=== PATIENT | male | born 1985 | race Caucasian/White ===

== ENCOUNTER 2016-08-24 17:47 | Emergency (ER) | payer SELFPAY ==
[2016-08-24 18:05] VITALS: BP 156/111; PULSE 87; TEMP 98.7; BMI 36.2
[2016-08-24] MEDS ORDERED: KETOROLAC TROMETHAMINE 60 MG/2 ML VIAL IM ONE (18:11)
--- NOTE | 2016-08-24 18:15 | PDOC ---
History of Present Illness - General History Source: Patient Exam Limitations: No Limitations <Mario Melo - Last Filed: 08/24/16 18:15> - General History Source: Patient Exam Limitations: No Limitations - History of Present Illness Initial Comments: 08/24/16 18:47 The patient is a 30 year old male with no known PMHx who presents to the ED with left sided back pain for 6 days. Patient states that he had back spasms on which persisted until Tuesday, when his back began to feel better. On tuesday, 4 days ago, he lifted a garage door and experienced severe pain down his back. Since then, the pain has persisted and has interfered with his daily activities. He denies any other complaints. <Ana Laura Alexandre - Last Filed: 08/24/16 18:47> - General Chief Complaint: Back Pain Stated Complaint: LEFT LOWER BACK PAIN Time Seen by Provider: 08/24/16 17:56 Past History - Past Medical History HTN: Yes (NON COMPLIANT WITH MEDS) - Psycho/Social/Smoking Cessation Hx Anxiety: No Suicidal Ideation: No Smoking History: Former smoker Have you smoked in the past 12 months: Yes Number of Cigarettes Smoked Daily: 5 If you are a former smoker, when did you quit?: MAY 2016 Information on smoking cessation initiated: Yes 'Breaking Loose' booklet given: 08/24/16 Hx Alcohol Use: No Drug/Substance Use Hx: No Substance Use Type: None <Mario Melo - Last Filed: 08/24/16 18:15> <Ana Laura Alexandre - Last Filed: 08/24/16 18:47> - Past Medical History Allergies/Adverse Reactions: Allergies Allergy/AdvReac Type Severity Reaction Status Date / Time No Known Allergies Allergy Verified 08/24/16 17:49 Home Medications: Ambulatory Orders Cyclobenzaprine HCl [Flexeril 10 mg] 10 mg PO TID PRN #21 tablet 08/24/16 Naproxen [Naprosyn -] 500 mg PO BID PRN #20 tablet 08/24/16 Review of Systems - Review of Systems Able to Perform ROS?: Yes Comments:: 08/24/16 18:47 GENERAL/CONSTITUTIONAL: No fever or chills. No weakness. HEAD, EYES, EARS, NOSE AND THROAT: No change in vision. No ear pain or discharge. No sore throat. CARDIOVASCULAR: No chest pain or shortness of breath. RESPIRATORY: No cough, wheezing, or hemoptysis. GASTROINTESTINAL: No nausea, vomiting, diarrhea or constipation. GENITOURINARY: No dysuria, frequency, or change in urination. MUSCULOSKELETAL: + back pain. No joint pain. No neck pain. SKIN: No rash NEUROLOGIC: No headache, vertigo, loss of consciousness, or change in strength/ sensation. ENDOCRINE: No increased thirst. No abnormal weight change. HEMATOLOGIC/LYMPHATIC: No anemia, easy bleeding, or history of blood clots. ALLERGIC/IMMUNOLOGIC: No hives or skin allergy. <Ana Laura Alexandre - Last Filed: 08/24/16 18:47> *Physical Exam - Vital Signs Last Vital Signs Temp Pulse Resp BP Pulse Ox 98.7 F 87 20 156/111 97 08/24/16 17:48 08/24/16 17:48 08/24/16 17:48 08/24/16 17:48 08/24/16 17:48 <Mario Melo - Last Filed: 08/24/16 18:15> - Vital Signs Last Vital Signs Temp Pulse Resp BP Pulse Ox 98.7 F 87 20 156/111 97 08/24/16 17:48 08/24/16 17:48 08/24/16 17:48 08/24/16 17:48 08/24/16 17:48 - Physical Exam Comments: 08/24/16 18:47 GENERAL: Awake, alert, and fully oriented, in no acute distress HEAD: No signs of trauma EYES: PERRLA, EOMI, sclera anicteric, conjunctiva clear ENT: Auricles normal inspection, hearing grossly normal, nares patent, oropharynx clear without exudates. Moist mucosa NECK: Normal ROM, supple, no lymphadenopathy, JVD, or masses LUNGS: Breath sounds equal, clear to auscultation bilaterally. No wheezes, and no crackles HEART: Regular rate and rhythm, normal S1 and S2, no murmurs, rubs or gallops ABDOMEN: Soft, nontender, normoactive bowel sounds. No guarding, no rebound. No masses EXTREMITIES: Tenderness to palpation of left mid thoracic back worse with flexion and extension of his back. No spinal tenderness. Normal range of motion , no edema. No clubbing or cyanosis. No cords, erythema NEUROLOGICAL: Cranial nerves II through XII grossly intact. Normal speech, normal gait SKIN: Warm, Dry, normal turgor, no rashes or lesions noted. <Ana Laura Alexandre - Last Filed: 08/24/16 18:47> ED Treatment Course - Medications Given in the ED: ED Medications Discontinued Medications Generic Name Dose Route Start Last Admin Trade Name Bruno PRN Reason Stop Dose Admin Ketorolac Tromethamine 60 mg 08/24/16 18:11 08/24/16 18:21 Toradol Injection - IM 08/24/16 18:12 60 mg ONCE ONE Administration <Ana Laura Alexandre - Last Filed: 08/24/16 18:47> Medical Decision Making - Medical Decision Making 08/24/16 18:11 A portion of this note was documented by scribe services under my direction. I have reviewed the details of the note, within reason, and agree with the documentation with the following case summary and management plan written by me. Patient treated in the ED. Nursing notes are reviewed and incorporated into the medical decision-making. Vital signs reviewed. Peripheral IV access obtained by the nurse, laboratory studies are drawn and sent, reviewed and interpreted by myself. Vital Signs Temp Pulse Resp BP Pulse Ox 98.7 F 87 20 156/111 97 08/24/16 17:48 08/24/16 17:48 08/24/16 17:48 08/24/16 17:48 08/24/16 17:48 30-year-old male with no medical history presents with left mid back spasm and strain. Several days ago, the patient had pulled his left upper back. He had taken no medications reported that his back was improving on its own. However, patient attempting to lift a heavy gait and started to feel the same back spasm and strain. Denies any urinary or bowel incontinence. And eyes other symptoms. Has not taken any medications. Patient's symptoms are consistent with back strain and spasm. We shot Toradol. NSAIDs and muscle relaxants. Heat packs and supportive care and follow-up with orthopedics if symptoms persist. I discussed the physical exam findings, ancillary test results and final diagnoses with the patient. I answered all of the patient's questions. The patient was satisfied with the care received and felt comfortable with the discharge plan and treatment plan. The patient will call their primary care physician within 24 hours to arrange follow-up and will return to the Emergency Department with any new, persistant or worsening symptoms. <Mario Melo - Last Filed: 08/24/16 18:15> *DC/Admit/Observation/Transfer - Discharge Dispostion Admit: No <Mario Melo - Last Filed: 08/24/16 18:15> - Attestations Scribe Attestion: 08/24/16 18:47 Documentation prepared by Ana Laura Alexandre, acting as medical office manager for Mario Melo MD. <Ana Laura Alexandre - Last Filed: 08/24/16 18:47> Diagnosis at time of Disposition: Back strain Qualifiers: Encounter type: initial encounter Qualified Code(s): S39.012A - Strain of muscle, fascia and tendon of lower back, initial encounter - Discharge Dispostion Disposition: HOME Condition at time of disposition: Stable - Prescriptions Prescriptions: Cyclobenzaprine HCl [Flexeril 10 mg] 10 mg PO TID PRN #21 tablet PRN Reason: Back Pain Naproxen [Naprosyn -] 500 mg PO BID PRN #20 tablet PRN Reason: Back Pain - Referrals Referrals: Richard Asencio MD [Staff Physician] - - Patient Instructions Printed Discharge Instructions: DI for Back Spasm Additional Instructions: Take 500 mg naproxen every 12 hours as needed for pain. For additional relief, you may take a tablet of flexeril every 8 hours for muscle relaxants. This medication may make you drowsy, so please do not drink or drive. If symptoms persist for more than 2 weeks, make an appointment with your doctor or orthopedics.
[2016-08-24] MEDS ORDERED: KETOROLAC TROMETHAMINE 60 MG/2 ML VIAL ONE (18:24)
== END 2016-08-24 18:33 | disposition home or self-care (01) ==
LOC: FER 17:47
PROC: 3E0233Z Introduction of Anti-inflammatory into Muscle, Percutaneous Approach (ICD-10-PCS; principal; 2016-08-24)
DX: S39.012A Strain of muscle, fascia and tendon of lower back, initial encounter (principal); X58.XXXA Exposure to other specified factors, initial encounter; Y93.89 Activity, other specified; Y92.9 Unspecified place or not applicable; I10 Essential (primary) hypertension; Z87.891 Personal history of nicotine dependence
CPT/HCPCS: 99282-25

== ENCOUNTER 2016-08-27 18:20 | Emergency (ER) | payer SELFPAY ==
[2016-08-27 18:26] VITALS: BP 142/96; PULSE 100; TEMP 98; BMI 36.2
--- NOTE | 2016-08-27 19:26 | PDOC ---
History of Present Illness - General Chief Complaint: Blood Pressure Problem Stated Complaint: BLEEDING FROM MOUTH S/P CLEANING TEETH History Source: Patient Exam Limitations: No Limitations - History of Present Illness Initial Comments: 08/27/16 19:21 30 y m no sig pmhx, seen at [facility] 3 days ago for back pain and rx flexeril; pte c/o bleeding through gums and rt nostril after dental cleansing today. sts no trauma. no hx of bleeding disorders. no asa or nsaid's. no hematuria or hematochezia.in ed in [place]. slightly htn but lower than in his last visit. will address that at d/c. Past History - Past Medical History Allergies/Adverse Reactions: Allergies Allergy/AdvReac Type Severity Reaction Status Date / Time No Known Allergies Allergy Verified 08/27/16 18:23 Home Medications: Ambulatory Orders Cyclobenzaprine HCl [Flexeril 10 mg] 10 mg PO TID PRN #21 tablet 08/24/16 Naproxen [Naprosyn -] 500 mg PO BID PRN #20 tablet 08/24/16 HTN: Yes (NON COMPLIANT WITH MEDS) - Psycho/Social/Smoking Cessation Hx Anxiety: No Suicidal Ideation: No Smoking History: Former smoker Have you smoked in the past 12 months: Yes Number of Cigarettes Smoked Daily: 5 If you are a former smoker, when did you quit?: MAY 2016 Information on smoking cessation initiated: Yes 'Breaking Loose' booklet given: 08/27/16 Hx Alcohol Use: Yes Drug/Substance Use Hx: Yes ([facility]) Substance Use Type: None Review of Systems - Review of Systems Able to Perform ROS?: Yes Is the patient limited [place] proficient: No Constitutional: No: Symptoms Reported HEENTM: Yes: Symptoms Reported, See HPI Respiratory: No: Symptoms reported Cardiac (ROS): No: Symptoms Reported ABD/GI: No: Symptoms Reported : No: Symptoms Reported Musculoskeletal: Yes: Symptoms Reported, See HPI Integumentary: No: Symptoms Reported, Rash Neurological: No: Symptoms reported All Other Systems: Reviewed and Negative *Physical Exam - Vital Signs Last Vital Signs Temp Pulse Resp BP Pulse Ox 98 F 100 H 18 142/96 100 08/27/16 18:23 08/27/16 18:23 08/27/16 18:23 08/27/16 18:23 08/27/16 18:23 - Physical Exam General Appearance: Yes: Nourished, Appropriately Dressed. No: Apparent Distress HEENT: positive: Normal ENT Inspection (but bloody oral cavity. after rinsing, light oozing from gums at post and superior last molars. ), Other (rt nostril blod clot.). negative: Nasal Congestion Neck: positive: Supple. negative: Tender Respiratory/Chest: negative: Chest Tender, Respiratory Distress Cardiovascular: positive: Regular Rhythm, Regular Rate Gastrointestinal/Abdominal: positive: Soft. negative: Tender Lymphatic: negative: Adenopathy Musculoskeletal: positive: Normal Inspection. negative: CVA Tenderness, Vertebral Tenderness Extremity: positive: Normal Capillary Refill, Normal Inspection, Normal Range of Motion Integumentary: positive: Normal Color. negative: Petechiae, Rash, Ecchymosis, Bruising Neurologic: positive: director prospect II-XII NML intact, Fully Oriented, Alert, Normal Mood/ Affect, Normal Response, Motor Strength / ED Treatment Course - LABORATORY CBC & Chemistry Diagram: 08/27/16 19:20 Medical Decision Making - Medical Decision Making 08/27/16 19:25 persisting slow bleed after dental cleansing + epistaxis . will check cbc and inr 08/27/16 20:01 coags and plts ok. oozing persists from gums but has cleared in nose will d/c home HTN discussed with pt. will see his pmd *DC/Admit/Observation/Transfer Diagnosis at time of Disposition: Epistaxis, Gums, bleeding - Discharge Dispostion Disposition: HOME Condition at time of disposition: Improved - Patient Instructions Printed Discharge Instructions: DI for High Blood Pressure Additional Instructions: DO NOT PICK OR BLOW YOUR NOSE KEEP HEAD ELEVATED AT LEAST 30 DEGREES TONIGHT SEE YOUR DENTIST TOMORROW RETURN IF BLEEDING INCREASES DO NOT RINSE YOUR MOUTH
[2016-08-27 19:44] LABS: INR 1.18 (0.82-1.09); PROTHROMBIN TIME (PATIENT) 13.2 SEC (10.2-13.0)
[2016-08-27 19:49] LABS: MCH 28.2 pg (25.7-33.7); MCHC 34.6 g/dl (32.0-35.9); MEAN CELL VOLUME 81.6 fl (80-96); MEAN PLT VOLUME 10.1 fl (7.5-11.1); PLATELET COUNT 184 K/MM3 (134-434); RDW 12.9 % (11.9-15.9); WHITE BLOOD COUNT 8.3 K/mm3 (4.0-10.0)
== END 2016-08-27 20:09 | disposition home or self-care (01) ==
LOC: FER 18:20
DX: R04.0 Epistaxis (principal); K06.8 Other specified disorders of gingiva and edentulous alveolar ridge; Z87.891 Personal history of nicotine dependence; I10 Essential (primary) hypertension
CPT/HCPCS: 36415; 85027; 85610; 99281-25

== ENCOUNTER → 2016-10-12 | Emergency (ER) | payer OTHER ==
[2016-10-12 04:20] VITALS: BMI 33.0
--- NOTE | 2016-10-12 04:37 | PDOC ---
History of Present Illness - General History Source: Patient Exam Limitations: No Limitations - History of Present Illness Initial Comments: 10/12/16 04:46 The patient is a 31 year old male with significant past medical history of hypertension and anemia who presents to the ED for pressure like headache 1 hour prior to arrival. Patient reports he had lightheadedness around 12pm yesterday and one hour prior to arrival he developed a pressure-like headache with dizziness and palpitations. Denies blurry vision, SOB, chest pain, nausea, or vomiting. Patient became concerned about his blood pressure and decided to come in. States his blood pressure medications were recently increased about 1.5 weeks ago. The patient denies fever, chills, cough, diaphoresis, abdominal pain, and diarrhea. Allergies: NKDA Social History: Former smoker. No alcohol or drug use reported. Past Surgical History: None reported PCP: Dr. Armida Shaw <Janae Cloey - Last Filed: 10/12/16 04:46> - General History Source: Patient <Marco Antonio Adrian - Last Filed: 10/12/16 06:00> - General Chief Complaint: Blood Pressure Problem Stated Complaint: BP PROBLEM Time Seen by Provider: 10/12/16 04:26 Past History <Janae Coley - Last Filed: 10/12/16 04:46> - Past Medical History HTN: Yes (NON COMPLIANT WITH MEDS) - Psycho/Social/Smoking Cessation Hx Anxiety: No Suicidal Ideation: No Smoking History: Never smoked Have you smoked in the past 12 months: Yes Number of Cigarettes Smoked Daily: 5 If you are a former smoker, when did you quit?: MAY 2016 Information on smoking cessation initiated: No 'Breaking Loose' booklet given: 08/27/16 Hx Alcohol Use: No Drug/Substance Use Hx: No Substance Use Type: None <Marco Antonio Adrian - Last Filed: 10/12/16 06:00> - Past Medical History Allergies/Adverse Reactions: Allergies Allergy/AdvReac Type Severity Reaction Status Date / Time No Known Allergies Allergy Verified 10/12/16 04:17 Home Medications: Ambulatory Orders Amlodipine Bes/Olmesartan Med [Amlodipine-Olmesartan 5-20 mg] 1 each PO DAILY Ferrous Sulfate [Feosol] 325 mg PO DAILY 05/16/17 Review of Systems - Review of Systems Able to Perform ROS?: Yes Comments:: 10/12/16 04:46 CONSTITUTIONAL: Absent: fever, no chills, no fatigue EYES: Absent: visual changes ENT: Absent: ear pain, no sore throat CARDIOVASCULAR: +palpitations, lightheadedness Absent: chest pain RESPIRATORY: Absent: cough, no SOB GI: Absent: abdominal pain, no nausea, no vomiting, no constipation, no diarrhea GENITOURINARY: Absent: dysuria, no frequency, no hematuria MUSCULOSKELETAL: Absent: back pain, no arthralgia, no myalgia SKIN: Absent: rash NEURO: +pressure-like headache, dizziness <Janae Coley - Last Filed: 10/12/16 04:46> *Physical Exam - Vital Signs Last Vital Signs Temp Pulse Resp BP Pulse Ox 97.2 F L 75 14 134/94 98 10/12/16 04:18 10/12/16 04:18 10/12/16 04:18 10/12/16 04:18 10/12/16 04:18 - Physical Exam Comments: 10/12/16 04:46 GENERAL: Well-appearing, well-nourished. No apparent distress. HEENT: Normocephalic, atraumatic. PERRL, EOM intact. CARDIOVASCULAR: Normal S1, S2. Regular rate and rhythm. PULMONARY: Clear to auscultation bilaterally. ABDOMEN: Soft, non-distended, non-tender. EXTREMITIES: Normal ROM in all four extremities. No gross deformities. SKIN: Warm, dry. No rash NEUROLOGICAL: No focal neurological deficits. <Janae Coley - Last Filed: 10/12/16 04:46> - Vital Signs Last Vital Signs Temp Pulse Resp BP Pulse Ox 97.2 F L 75 14 134/94 98 10/12/16 04:18 10/12/16 04:18 10/12/16 04:18 10/12/16 04:18 10/12/16 04:18 <Marco Antonio Adrian - Last Filed: 10/12/16 06:00> Medical Decision Making - Medical Decision Making 10/12/16 06:00 Dr. Adrian: The scribe's documentation has been prepared under my direction and personally reviewed by me in its entirery. I confirm that the note above accurately reflects all work, treatment, procedures, and medical decision making performed by me. <Marco Antonio Adrian - Last Filed: 10/12/16 06:00> *DC/Admit/Observation/Transfer - Attestations Scribe Attestion: 10/12/16 04:46 Documentation prepared by Janae Coley, acting as medical laboratory technical officer for Marco Antonio Adrian MD/DO. <Janae Coley - Last Filed: 10/12/16 04:46> - Discharge Dispostion Admit: No <Marco Antonio Adrian - Last Filed: 10/12/16 06:00> Diagnosis at time of Disposition: Hypertension Qualifiers: Hypertension type: essential hypertension Qualified Code(s): I10 - Essential ( primary) hypertension - Discharge Dispostion Disposition: HOME Condition at time of disposition: Stable - Referrals Referrals: Armida Shaw MD [Primary Care Provider] - - Patient Instructions Printed Discharge Instructions: DI for High Blood Pressure, How to Monitor Your Blood Pressure at Home - Post Discharge Activity Work/School Note: Back to Work
[2016-10-12 06:16] VITALS: BP 146/91; PULSE 71; TEMP 97.6
== END | disposition home or self-care (01) ==
LOC: JER 03:56
DX: I10 Essential (primary) hypertension (principal); D64.9 Anemia, unspecified; Z91.14 Patient's other noncompliance with medication regimen
CPT/HCPCS: 70450-TC; 99282-25

== ENCOUNTER 2017-02-09 13:03 | Day surgery (SDC) | payer OTHER ==
[2017-02-02 13:53] VITALS: BMI 30.2
[2017-02-09] MEDS ORDERED: MIDAZOLAM HCL 2 MG/2 ML SINGLE DOSE VIAL ONE ×3 (13:38)
[2017-02-09] MEDS ORDERED: ROPIVACAINE HCL 0.5% 30ML VIAL ONE (13:45)
[2017-02-09] MEDS ORDERED: PROPOFOL 20 ML ONE (14:50)
[2017-02-09] MEDS ORDERED: LIDOCAINE HCL/PF 2% SDV 5ML VIAL ONE (14:50)
[2017-02-09] MEDS ORDERED: ROCURONIUM BROMIDE 50 MG/5 ML VIAL ONE (14:52)
[2017-02-09] MEDS ORDERED: DEXAMETHASONE SOD PHOSPHATE 4 MG/1 ML VIAL ONE (15:25)
[2017-02-09] MEDS ORDERED: ceFAZolin SODIUM 1 GM VIAL ONE (15:25)
[2017-02-09] MEDS ORDERED: ONDANSETRON 4 MG/2 ML VIAL ONE ×2 (15:25→16:56)
[2017-02-09] MEDS ORDERED: NEOSTIGMINE METHYLSULFATE 0.5 MG/ML - 10 ML MDV ONE (16:03)
[2017-02-09] MEDS ORDERED: GLYCOPYRROLATE 0.2 MG/1 ML VIAL ONE (16:04)
[2017-02-09] MEDS ORDERED: oxyCODONE HCL 5 MG TABLET PO PRN ×2 (16:16)
[2017-02-09] MEDS ORDERED: ONDANSETRON 4 MG/2 ML VIAL IVPUSH PRN (16:16)
[2017-02-09] MEDS ORDERED: PROMETHAZINE HCL 25 MG/1 ML VIAL IVPUSH PRN (16:16)
[2017-02-09] MEDS ORDERED: LACTATED RINGERS SOLUTION 1,000 ML IV SCH (16:30)
[2017-02-09] MEDS ORDERED: ONDANSETRON 4 MG/2 ML VIAL IVPUSH ONE (16:56)
[2017-02-09 17:21] VITALS: TEMP 98.5
[2017-02-09] MEDS ORDERED: PROMETHAZINE HCL 25 MG/1 ML VIAL ONE (17:32)
[2017-02-09 18:50] VITALS: PULSE 76
[2017-02-09 19:30] VITALS: BP 149/92
--- NOTE | 2017-02-11 09:00 | OP ---
DATE OF OPERATION: 02/09/2017 PREOPERATIVE DIAGNOSIS: Left shoulder possible rotator cuff tear. POSTOPERATIVE DIAGNOSES: 1. Left shoulder partial-thickness rotator cuff tear. 2. Left shoulder subacromial impingement syndrome. OPERATIVE PROCEDURES: 1. Left shoulder glenohumeral joint and rotator cuff extensive debridement. 2. Left shoulder arthroscopic subacromial decompression. SURGEON: Jay Moreno MD PHLEBOTOMIST: AARON Bennett ANESTHESIA: Regional and general. COMPLICATIONS: None. ESTIMATED BLOOD LOSS: Minimal. INDICATION FOR PROCEDURE: The patient is a 31-year-old male with the above finding, indicated for operative treatment. Risks, benefits, and alternatives were discussed with the patient, and proper informed consent was obtained. DESCRIPTION OF PROCEDURE: After proper identification of the patient and correct operative site, patient was brought to the operating room and placed supine on the operative table. All bony prominences were well padded. Regional and general anesthesia was given. Patient was then placed in the beach chair position with all points of contact well padded and midline surgical position maintained throughout the procedure. Left upper extremity was prepped and draped in the usual sterile fashion. Arthroscopic instruments were used through small portals made in the skin only with blunt dissection down to the joint capsule. Anterior, lateral, and posterior portals were used. Glenohumeral joint was first observed. There was very mild chondromalacia of the glenoid and the humeral head. This was gently debrided. [id number] synovitis was noted throughout the joint, which was debrided with mechanical shaver. The labrum was intact superiorly, posteriorly, and inferiorly, and the anterior aspect was a [place] complex. There did appear to be a little bit of stripping and of the inferior labrum but no gross instability. Subscapularis was intact. Biceps tendon was intact. Extra-articular portion was brought into the joint and found to be free of any tears. The rotator cuff was then observed and found to have diffuse partial tearing. This was debrided with mechanical shaver and ArthroWand. There was no evidence of full-thickness tear in the articular surface. No loose bodies were found in the joint. Extensive debridement was performed within this joint. The arthroscope was then introduced into the subacromial space where a severe bursitis was noted which was debrided with the mechanical shaver. Rotator cuff was found to have some mild fraying on the bursal surface but no full-thickness tearing. The bursa and rotator cuff were gently debrided, and an anterior inferior subacromial spur was removed. Arthroscope was then reintroduced into the joint, and the rotator cuff was probed with a blunt probe from the bursal surface to see if there were any areas of significant thinning. At all areas throughout the rotator cuff, it appeared that at least 50% of the rotator cuff thickness was left intact. No areas of full-thickness tearing were found. At this point, it was determined that no rotator cuff repair would be warranted at this time, and arthroscope was removed from the joint and the wounds were repaired with 5-0 nylon sutures. Sterile dressings were applied. The patient was reversed from anesthesia and brought to the recovery room in stable condition. Luis M Love, the information services assistant, was integral throughout this procedure. The procedure could not have been performed without a skilled operative information services assistant. Patrick DENNIS/[id number]
== END 2017-02-09 19:32 | disposition home or self-care (01) ==
LOC: FASU 13:03
PROVIDERS: ATTEND Orthopaedic Surgery Hand Surgery
PROC: 0RBK4ZZ Excision of Left Shoulder Joint, Percutaneous Endoscopic Approach (ICD-10-PCS; principal; 2017-02-09 14:58)
DX: M75.102 Unspecified rotator cuff tear or rupture of left shoulder, not specified as traumatic (principal); M75.42 Impingement syndrome of left shoulder; M65.9 Synovitis and tenosynovitis, unspecified; M71.9 Bursopathy, unspecified
CPT/HCPCS: 94760

== ENCOUNTER 2017-02-14 18:44 | Emergency (ER) | payer OTHER ==
[2017-02-14 18:53] VITALS: PULSE 84; TEMP 98.6; BMI 30.7
[2017-02-14] MEDS ORDERED: ACETAMINOPHEN 325 MG TABLET (FP) PO ONE (19:23)
--- NOTE | 2017-02-14 19:25 | PDOC ---
History of Present Illness - General Chief Complaint: Cold Symptoms Stated Complaint: FEVER/MUSCLE ACHES Time Seen by Provider: 02/14/17 19:07 History Source: Patient - History of Present Illness Timing/Duration: other Associated Symptoms: reports: fever/chills. denies: cough, headaches, nausea/ vomiting, rash, shortness of breath Past History - Past Medical History Allergies/Adverse Reactions: Allergies Allergy/AdvReac Type Severity Reaction Status Date / Time No Known Allergies Allergy Verified 02/14/17 18:49 Home Medications: Ambulatory Orders Chlorthalidone 25 mg PO DAILY #30 tablet 01/12/14 Benazepril HCl 20 mg PO DAILY 02/02/17 Anemia: No Asthma: No Cancer: No Cardiac Disorders: No CVA: No COPD: No CHF: No Dementia: No Diabetes: No GI Disorders: No Disorders: No HTN: Yes Hypercholesterolemia: No Liver Disease: No Seizures: No Thyroid Disease: No - Suicide/Smoking/Psychosocial Hx Smoking Status: Yes Smoking History: Never smoked Have you smoked in the past 12 months: Yes Number of Cigarettes Smoked Daily: 5 If you are a former smoker, when did you quit?: MAY 2016 Information on smoking cessation initiated: No 'Breaking Loose' booklet given: 08/27/16 Hx Alcohol Use: No Drug/Substance Use Hx: No Substance Use Type: Alcohol Review of Systems - Review of Systems Constitutional: Yes: Fever HEENTM: No: Ear Pain, Throat Pain Respiratory: No: Cough, Shortness of Breath Cardiac (ROS): No: Chest Pain ABD/GI: No: Diarrhea, Nausea, Vomiting Musculoskeletal: No: Joint Swelling Neurological: No: Headache, Dizziness *Physical Exam - Vital Signs Last Vital Signs Temp Pulse Resp BP Pulse Ox 98.6 F 84 18 153/100 100 02/14/17 18:50 02/14/17 18:50 02/14/17 18:50 02/14/17 18:50 02/14/17 18:50 - Physical Exam General Appearance: Yes: Appropriately Dressed. No: Apparent Distress HEENT: positive: Normal ENT Inspection, Normal Voice. negative: Scleral Icterus (R), Scleral Icterus (L) Neck: positive: Supple. negative: Lymphadenopathy (R), Lymphadenopathy (L) Respiratory/Chest: positive: Lungs Clear, Normal Breath Sounds. negative: Respiratory Distress Cardiovascular: positive: Regular Rate, S1, S2 Extremity: positive: Other (multiple surgical incisions to L shoulder that appears to be healing well, no red, hot joint, LROM presumely 2/2 post op pain) Integumentary: positive: Dry, Warm Neurologic: positive: Fully Oriented, Alert, Normal Mood/Affect Medical Decision Making - Medical Decision Making 02/14/17 19:25 31-year-old male history of hypertension, status post surgery for rotator cuff injury to left shoulder last week with no immediate postop issues and scheduled for 1st PT session tomorrow, here with generalized body aches with subjective fever 2 days. Denies worsening pain or erythema to left shoulder. No sore throat, ear pain, cough, shortness of breath, nausea, vomiting or changes in bowel movements. No known sick contacts See exam Viral syndrome Exam unremarkable -Dc w/ supportive tx 02/14/17 19:26 *DC/Admit/Observation/Transfer Diagnosis at time of Disposition: Viral syndrome - Discharge Dispostion Disposition: HOME Condition at time of disposition: Good - Referrals Referrals: Armida Shaw MD [Primary Care Provider] - - Patient Instructions Printed Discharge Instructions: DI for Viral Syndrome Additional Instructions: The source of your illness is most likely viral. There is no evidence that you have a left shoulder infection at this time. Rest, drink plenty of fluids and take Tylenol or Motrin as needed for pain and/or fever. If you develop acute worsening pain to your left shoulder with redness or swelling, return to ER immediately
[2017-02-14 19:37] VITALS: BP 150/95
== END 2017-02-14 19:37 | disposition home or self-care (01) ==
LOC: JERFT 18:44
DX: B34.9 Viral infection, unspecified (principal)
CPT/HCPCS: 99281-25

== ENCOUNTER 2020-09-17 19:13 | Emergency (ER) | payer OTHER ==
[2020-09-17 19:24] VITALS: TEMP 97.7; BMI 43.4
[2020-09-17] MEDS ORDERED: amLODIPine BESYLATE 5 MG TABLET (FP) PO ONE (21:01)
[2020-09-17] MEDS ORDERED: amLODIPine BESYLATE 5 MG TABLET (FP) ONE (21:32)
[2020-09-17 21:44] LABS: BASO % 0.4 % (0-2.0); EOS % 1.2 % (0-4.5); HEMATOCRIT 41.5 % (35.4-49); HEMOGLOBIN 14.6 GM/dL (11.7-16.9); LYMPH % 23.5 % (8-40); MCHC 35.2 g/dl (32.0-35.9); MEAN CELL VOLUME 79.7 fl (80-96); MEAN PLT VOLUME 9.5 fl (7.5-11.1); MONO % 7.1 % (3.8-10.2); NEUT % 67.8 % (42.8-82.8); PLATELET COUNT 193 K/MM3 (134-434); RBC 5.21 M/mm3 (4.00-5.60); RDW 14.5 % (11.9-15.9); WHITE BLOOD COUNT 7.4 K/mm3 (4.0-10.0)
[2020-09-17 22:05] LABS: CALCIUM 8.9 mg/dL (8.5-10.1)
[2020-09-17 22:06] LABS: ALBUMIN 4.2 g/dl (3.4-5.0); BLOOD UREA NITROGEN 15.9 mg/dL (7-18)
[2020-09-17 22:09] LABS: CREATININE 1.1 mg/dL (0.55-1.3)
[2020-09-17 22:10] LABS: BILIRUBIN,TOTAL 0.4 mg/dL (0.2-1); TOT PROT 7.9 g/dl (6.4-8.2)
[2020-09-17 22:18] LABS: URINE APPEARANCE CLEAR; URINE BILIRUBIN NEGATIVE (NEGATIVE); URINE COLOR YELLOW; URINE GLUCOSE (UA) NEGATIVE (NEGATIVE); URINE KETONE TRACE (NEGATIVE); URINE LEUK ESTERASE NEGATIVE (NEGATIVE); URINE NITRITE NEGATIVE (NEGATIVE); URINE PROTEIN TRACE (NEGATIVE); URINE UROBILINOGEN 0.2 mg/dL (0.2-1.0)
[2020-09-17 23:46] VITALS: BP 139/87; PULSE 80
== END 2020-09-18 00:10 | disposition home or self-care (01) ==
LOC: JERFT 19:13
DX: M25.562 Pain in left knee (principal); I87.2 Venous insufficiency (chronic) (peripheral)
CPT/HCPCS: 36415; 73562-TC-LT-FY; 80053; 81003; 85025; 93971-TC; 99285-25

== ENCOUNTER 2023-08-09 19:23 | Emergency (ER) | payer OTHER ==
[2023-08-09 19:27] VITALS: RESP 18; TEMP 97.8; BMI 44.6
[2023-08-09] MEDS ORDERED: KETOROLAC TROMETHAMINE 30 MG/1 ML VIAL IM ONE (20:59)
[2023-08-09] MEDS ORDERED: ONDANSETRON *ODT* 4 MG TABLET ONE (22:55)
[2023-08-09 23:02] VITALS: BP 116/76; PULSE 72
[2023-08-09] MEDS: ONDANSETRON *ODT* 4 MG TABLET SL ONE (23:03)
== END 2023-08-10 00:22 | disposition home or self-care (01) ==
LOC: JERFT 19:23
DX: S81.811A Laceration without foreign body, right lower leg, initial encounter (principal); M79.661 Pain in right lower leg; R26.2 Difficulty in walking, not elsewhere classified; R11.0 Nausea; R61 Generalized hyperhidrosis; M79.89 Other specified soft tissue disorders; X50.9XXA Other and unspecified overexertion or strenuous movements or postures, initial encounter; Y93.89 Activity, other specified; Y92.009 Unspecified place in unspecified non-institutional (private) residence as the place of occurrence of the external cause
CPT/HCPCS: 76882-TC-RT-FY; 82962; 99284-25; Q0162

== ENCOUNTER 2023-08-15 08:07 | Emergency (ER) | payer OTHER ==
[2023-08-15 08:23] VITALS: BP 133/81; PULSE 94; RESP 18; TEMP 98; BMI 44.6
[2023-08-15] MEDS ORDERED: KETOROLAC TROMETHAMINE 30 MG/1 ML VIAL ONE (09:14)
[2023-08-15] MEDS ORDERED: ACETAMINOPHEN 325 MG TABLET (FP) ONE (09:14)
[2023-08-15] MEDS: KETOROLAC TROMETHAMINE 30 MG/1 ML VIAL IM ONE (09:24)
[2023-08-15] MEDS: ACETAMINOPHEN 500 MG TABLET (FP) PO ONE (09:24)
== END 2023-08-15 13:57 | disposition home or self-care (01) ==
LOC: JER 08:07
PROC: 3E0233Z Introduction of Anti-inflammatory into Muscle, Percutaneous Approach (ICD-10-PCS; principal; 2023-08-15)
DX: S86.111A Strain of other muscle(s) and tendon(s) of posterior muscle group at lower leg level, right leg, initial encounter (principal); S86.011A Strain of right Achilles tendon, initial encounter; X58.XXXA Exposure to other specified factors, initial encounter
CPT/HCPCS: 73700-TC-RT; 99284-25